=== PATIENT | male | born 1995 | race Caucasian/White ===

== ENCOUNTER 2016-11-20 05:39 | Emergency (ER) | payer OTHER ==
[~2016-11-20] VITALS: Ht 180.3 cm; Wt 104.3 kg
[2016-11-20] MEDS ORDERED: MORPHINE SULFATE 10 MG/ML VIAL. IM ONE (06:15)
[2016-11-20] MEDS ORDERED: DEXAMETHASONE SOD PHOS 20 MG/5 ML VIAL. IM ONE (06:30)
[2016-11-20] MEDS ORDERED: IV NORMAL SALINE 1000ML BAG 1,000 ML IV ONE (06:45)
[2016-11-20 06:59] LABS: CREATININE 1.1 mg/dL (0.7-1.3); GFR 84.5
[2016-11-20] MEDS ORDERED: MORPHINE SULFATE 4 MG/ML DISP.SYRIN. IV/SQ PRN (07:00)
[2016-11-20 07:05] LABS: BASO # 0.1 x10^3/uL (0.0-0.2); BASO % 1 % (0-3); EOS % 2 % (0-3); HEMATOCRIT 45.7 % (39.0-53.0); HEMOGLOBIN 15.3 g/dL (13.0-17.5); LYMPH # 1.8 x10^3/uL (1.0-4.8); LYMPH % 17 % (24-48); MEAN CORPUSCULAR HEMOGLOBIN 29 pg (25-35); MEAN CORPUSCULAR HGB CONC 33 g/dL (31-37); MEAN CORPUSCULAR VOLUME 87 fL (79-100); MONO % 11 % (0-9); NEUT % 70 % (31-73); PLATELET COUNT 278 x10^3/uL (140-400); RED BLOOD COUNT 5.27 x10^6/uL (4.30-5.70); RED CELL DISTRIBUTION WIDTH 12.5 % (11.5-14.5); WHITE BLOOD COUNT 10.8 x10^3/uL (4.0-11.0)
--- NOTE | 2016-11-20 07:22 | PHYS DOC ---
Past Medical History Past Medical History: Diabetes-Type I, Hypertension, Seizure Past Surgical History: Tonsillectomy Alcohol Use: None Drug Use: None Adult General Chief Complaint Chief Complaint: SORE THROAT HPI HPI Patient is a 21 year old male who presents with sore throat. The patient is s/ p tonsillectomy by Dr. Sohan Jacobs at [facility] on 11/17. States pain has been poorly controlled with lortab elixir since surgery. Today has increased sensation of throat swelling & pain continues, vomited once prior to arrival. Denies fevers/chills, bleeding, difficulty breathing, abdominal pain. Called integrity consultant surgeon & was instructed to seek care in the ER. he has diabetes. Review of Systems Review of Systems Constitutional: Denies fever or chills Eyes: Denies change in visual acuity HENT: Denies nasal congestion, reports sore throat Respiratory: Denies cough or shortness of breath Cardiovascular: Denies chest pain or edema GI: Reports nausea and vomiting. Denies abdominal pain Musculoskeletal: Denies back pain or joint pain Integument: Denies rash Neurologic: Denies headache Current Medications Current Medications Current Medications Medications (Trade) Dose Ordered Sig/Murali Start Time Stop Time Status Last Admin Dose Admin Dexamethasone Sodium Phosphate 10 mg 10 mg 1X ONCE 11/20/16 06:30 11/20/16 06:31 DC 11/20/16 06:41 10 MG Morphine Sulfate 4 mg PRN Q15MIN PRN 11/20/16 07:00 11/20/16 07:40 DC 11/20/16 06:59 4 MG Sodium Chloride (Iv Sodium Chloride 0.9% 1000ml Bag) 1,000 ml @ 1,000 mls/hr 1X ONCE 11/20/16 06:45 11/20/16 07:40 DC 11/20/16 06:45 1,000 MLS/HR Allergies Allergies Allergies Coded Allergies Type Severity Reaction Last Updated Verified No Known Drug Allergies 11/11/13 No Physical Exam Physical Exam Constitutional: Obese, no acute distress, non-toxic appearance. HENT: Normocephalic, atraumatic, bilateral external ears normal, oropharynx moist, nose normal. Posterior oropharynx bilateral white scar tissue with no evidence of bleeding or bulging of the palate, airway patent although uvula is edematous and somewhat obscuring view of posterior oropharynx. No definite evidence of tongue swelling, no lip or facial swelling. Eyes: conjunctiva normal, no discharge. Neck: supple, no stridor. Cardiovascular: RRR heart rate 100 at time of my exam, no murmurs, no edema. Lungs & Thorax: LCTAB, no wheezing, no respiratory distress. Abdomen: soft, nontender, nondistended. Skin: Warm, dry, no erythema, no rash. Back: No tenderness. Extremities: No calf tenderness or swelling. Neurologic: Alert and oriented X 3 Psychologic: Anxious Current Patient Data Vital Signs Vital Signs Date Time Temp Pulse Resp B/P Pulse Ox O2 Delivery O2 Flow Rate FiO2 11/20/16 07:30 94 19 158/90 99 11/20/16 06:59 Room Air 11/20/16 05:53 99.0 99.0 Lab Values Laboratory Tests Test 11/20/16 06:35 White Blood Count 10.8x10^3/uL (4.0-11.0) Red Blood Count 5.27x10^6/uL (4.30-5.70) Hemoglobin 15.3g/dL (13.0-17.5) Hematocrit 45.7% (39.0-53.0) Mean Corpuscular Volume 87fL (79-100) Mean Corpuscular Hemoglobin 29pg (25-35) Mean Corpuscular Hemoglobin Concent 33g/dL (31-37) Red Cell Distribution Width 12.5% (11.5-14.5) Platelet Count 278x10^3/uL (140-400) Neutrophils (%) (Auto) 70% (31-73) Lymphocytes (%) (Auto) 17% (24-48) L Monocytes (%) (Auto) 11% (0-9) H Eosinophils (%) (Auto) 2% (0-3) Basophils (%) (Auto) 1% (0-3) Neutrophils # (Auto) 7.5x10^3uL (1.8-7.7) Lymphocytes # (Auto) 1.8x10^3/uL (1.0-4.8) Monocytes # (Auto) 1.1x10^3/uL (0.0-1.1) Eosinophils # (Auto) 0.2x10^3/uL (0.0-0.7) Basophils # (Auto) 0.1x10^3/uL (0.0-0.2) Sodium Level 137mmol/L (136-145) Potassium Level 4.0mmol/L (3.5-5.1) Chloride Level 99mmol/L (98-107) Carbon Dioxide Level 30mmol/L (21-32) Anion Gap 8 (6-14) Blood Urea Nitrogen 8mg/dL (8-26) Creatinine 1.1mg/dL (0.7-1.3) Estimated GFR (Cockcroft-Gault) 84.5 Glucose Level 142mg/dL (70-99) H Calcium Level 10.0mg/dL (8.5-10.1) Laboratory Tests 11/20/16 06:35 Laboratory Tests 11/20/16 06:35 EKG EKG [] Radiology/Procedures Radiology/Procedures [] Course & Med Decision Making Course & Med Decision Making Pertinent Labs and Imaging studies reviewed. (See chart for details) Patient presents with pain after tonsillectomy. On exam uvula is swollen but airway is patent. Discussed with Dr. Rice integrity consultant for Dr. Jacobs, recommends decadron here & patient can call clinic for appointment on Tuesday. Patient agrees with plan but on my reassessment he was noted to have heart rate up to 130s while at rest. He appeared anxious but this raises concern for other process. Lungs are clear, no cough, no chest pain or leg swelling, no evidence of abscess clinically, only one episode of vomiting without abdominal pain. Gave IV fluids & pain medication, & obtained labs which show normal WBC. Patient remains afebrile. He felt better after fluids with HR in the 90s, & was comfortable with discharge home. When I entered the room to discuss discharge, he had experienced a transient episode of aching back pain with mild chest pain that completely resolved. This had followed morphine administration. Not present prior to arrival in the hospital & resolved at time of my reassessment. Patient still somewhat anxious & was lying in uncomfortable position on the gurney. With repositioning he felt better & requested discharge. We did discuss possibility of further evaluation including chest CTA for PE with his tachycardia, but he had no symptoms of DVT & no symptoms consistent with PE at time of presentation. He preferred to defer any further testing. He understands plan for follow up. I did advise him that there is not an ENT on staff at [place]; though our emergency department will never turn away a patient presenting for evaluation, it is in his best interest to seek care at the hospital where his ENT practices if needing further care. Recommend return for high fever, severe pain, severe chest pain or shortness of breath, difficulty breathing or swallowing, any bleeding, any otherwise worsening condition. Discharged home in stable condition. [] Dragon Disclaimer Dragon Disclaimer This electronic medical record was generated, in whole or in part, using a voice recognition dictation system. Departure Departure Impression: Primary Impression: Uvular swelling Additional Impression: Tachycardia Disposition: HOME, SELF-CARE Condition: STABLE Patient Instructions: Uvulitis Additional Instructions: You were seen in the emergency department today for pain after tonsillectomy. Your uvula is swollen but there is no sign of serious abnormality at the surgical site. Please rest, drink fluids to stay hydrated, continue using oral pain medication. You received steroids here which should help reduce swelling. Please follow up with Dr. Jacobs in clinic on Tuesday. If you have worsening pain, high fever > 100.4, difficulty breathing or swallowing, bleeding from your mouth, any otherwise worsening condition, you should be seen right away. As we discussed, there is not an ENT surgeon at [facility], though you will never be turned away in the ER. Scripts Ondansetron (Zofran Odt)4 Mg Tab.rapdis1 Tab SL Q8HRS PRN NAUSEA #10 TAB Prov:TRA KNOWLES MD 11/20/16 Oxycodone Hcl 5 Mg/5 Ml Solution5 Mg PO Q6HRS PRN PAIN #60 ML Ref 0 Prov:TRA KNOWLES MD 11/20/16 Problem Qualifiers TRA KNOWLES MD Nov 20, 2016 07:22
[2016-11-20 07:30] VITALS: BP 158/90
[2016-11-20] MEDS ORDERED: OXYC5SOL PO (07:38)
[2016-11-20] MEDS ORDERED: ONDA4TAB10 SL (07:38)
== END 2016-11-20 07:40 | disposition home or self-care (01) ==
LOC: ER 05:39
DX: K13.79 Other lesions of oral mucosa (principal); R00.0 Tachycardia, unspecified; F41.9 Anxiety disorder, unspecified; E10.9 Type 1 diabetes mellitus without complications; I10 Essential (primary) hypertension; Z90.89 Acquired absence of other organs
CPT/HCPCS: 36415; 80048; 85027; 96361; 96372; 96374; 99284; J1100; J2270; J7030

== ENCOUNTER 2017-03-08 18:40 | Emergency (ER) | payer OTHER ==
[~2017-03-08] VITALS: Ht 180.3 cm; Wt 108.9 kg
[~2017-03-08 18:40] MED LIST: ONDA4TAB10 SL; OXYC5SOL PO
--- NOTE | 2017-03-08 19:28 | PHYS DOC ---
Past Medical History Past Medical History: Diabetes-Type I, Hypertension, Seizure Past Surgical History: Tonsillectomy Alcohol Use: None Drug Use: None Adult General Chief Complaint Chief Complaint: NEAR SYNCOPE HPI HPI Patient is a 22 year old male who complains of forearm muscle cramps that are diffuse, feeling some chest tightness, feeling some weakness. Patient was working in the sun today for an extended period time when he started having the symptoms, patient had blood sugar check at the site his blood sugar was 50. Patient denies any focal weakness, numbness, there was no altered mental status. Patient feels improved in the ED, blood sugar in the ED is138 Review of Systems Review of Systems Constitutional: Denies fever or chills [] Respiratory: Denies cough or shortness of breath [] Cardiovascular: No additional information not addressed in HPI [] GI: Denies abdominal pain, nausea, vomiting, bloody stools or diarrhea [] : Denies dysuria or hematuria [] Musculoskeletal: muscle cramps Integument: Denies rash or skin lesions [] Neurologic: Denies headache, focal weakness or sensory changes [] Endocrine: Denies polyuria. Been drinking lots of water Current Medications Current Medications Current Medications Medications (Trade) Dose Ordered Sig/Murali Start Time Stop Time Status Last Admin Dose Admin Sodium Chloride 1,000 ml @ 1,000 mls/hr 1X ONCE 03/08/17 19:30 03/08/17 20:29 DC 03/08/17 19:26 1,000 MLS/HR Allergies Allergies Allergies Coded Allergies Type Severity Reaction Last Updated Verified No Known Drug Allergies 11/11/13 No Physical Exam Physical Exam Constitutional: Well developed, well nourished, no acute distress, non-toxic appearance. [] HENT: Normocephalic, atraumatic, DMM Eyes: EOMI, conjunctiva normal, no discharge. [] Neck: Normal range of motion, no tenderness, supple, no stridor. [] Cardiovascular: Tachycardia with equal pulses and normal perfusion Lungs & Thorax: Bilateral breath sounds clear to auscultation , no tachypnea Abdomen: Bowel sounds normal, soft, no tenderness, no masses, no pulsatile masses. [] Skin: Warm, dry, no erythema, no rash. [] Extremities: No tenderness, no cyanosis, no clubbing, ROM intact, no edema. No signs of DVT Neurologic: Alert and oriented X 3, normal motor function, normal sensory function, no focal deficits noted. [] Psychologic: Affect normal, judgement normal, mood normal. [] Current Patient Data Vital Signs Vital Signs Date Time Temp Pulse Resp B/P (MAP) Pulse Ox O2 Delivery O2 Flow Rate FiO2 03/08/17 20:35 98 134/71 (92) 98 Room Air 03/08/17 19:01 98.6 22 98.6 Lab Values Laboratory Tests Test 03/08/17 19:18 03/08/17 19:24 03/08/17 20:14 03/08/17 20:19 Glucose (Fingerstick) 138 mg/dL (70-99) H POC Hemoglobin 18.4 g/dL (14-18) H 17.7 g/dL (14-18) POC Hematocrit 54 % (37-52) H 52 % (37-52) POC Sodium 131 mmol/L (135-145) L 135 mmol/L (135-145) POC Potassium 7.0 mmol/L (3.5-5.0) H 4.3 mmol/L (3.5-5.0) POC Chloride 100 mmol/L (98-110) 99 mmol/L (98-110) POC Total CO2 23 mmol/L (23-32) 24 mmol/L (23-32) Anion Gap 16 mmol/L (6-14) H 17 mmol/L (6-14) H 13 (6-14) POC Blood Urea Nitrogen 43 mg/dL (8-26) H 30 mg/dL (8-26) H POC Creatinine 3.0 mg/dL (0.5-1.4) H 2.7 mg/dL (0.5-1.4) H Glucose Level 127 mg/dL (70-99) H 114 mg/dL (70-99) H 119 mg/dL (70-99) H POC Ionized Calcium (Jeremiah) 1.15 mmol/L (1.13-1.32) 1.21 mmol/L (1.13-1.32) Sodium Level 137 mmol/L (136-145) Potassium Level 4.4 mmol/L (3.5-5.1) Chloride Level 98 mmol/L (98-107) Carbon Dioxide Level 26 mmol/L (21-32) Blood Urea Nitrogen 30 mg/dL (8-26) H Creatinine 2.8 mg/dL (0.7-1.3) H Estimated GFR (Cockcroft-Gault) 28.5 Calcium Level 9.9 mg/dL (8.5-10.1) Laboratory Tests 03/08/17 19:24 03/08/17 20:14 03/08/17 20:19 EKG EKG Sinus tachycardia, 117, no STEMI, EP interpretation at 1903 [] Radiology/Procedures Radiology/Procedures [] Course & Med Decision Making Course & Med Decision Making Pertinent Labs and Imaging studies reviewed. (See chart for details) Patient feels improved, heart rate when I enter the room was 90. Patient in no distress. No vomiting in the ED. I discussed the lab results with the patient and the family, I pointed out that there are signs of acute renal injury likely due to dehydration so recommended rehydration at home and recheck of renal labs in 2 days at the PCPs office. I pointed out this is likely an acute issue but it there is a possibility it may be acute on chronic due to the patient's diabetes and we need to make sure there is no worsening. Patient and family voiced understanding and admitted to follow-up as directed [] Dragon Disclaimer Dragon Disclaimer This electronic medical record was generated, in whole or in part, using a voice recognition dictation system. Departure Departure Impression: Primary Impression: Heat exhaustion Additional Impressions: Dehydration, moderate Hypoglycemia Renal insufficiency Disposition: 01 HOME, SELF-CARE Condition: IMPROVED Referrals: MAKAYLA ZAMBRANO-C (PCP) please continue oral hydration at home, do not work in the sun tomorrow and stay home. Please make sure to have your renal labs recheck in 2 days at your pcp's office. Problem Qualifiers Tiera PEREYRA MD Mar 08, 2017 19:28
[2017-03-08] MEDS ORDERED: IV NORMAL SALINE 1000ML BAG 1,000 ML IV ONE (19:30)
[2017-03-08 20:44] LABS: CALCIUM 9.9 mg/dL (8.5-10.1); CREATININE 2.8 mg/dL (0.7-1.3); GFR 28.5; POTASSIUM 4.4 mmol/L (3.5-5.1)
[2017-03-08 20:44] LABS: POTASSIUM ISTAT 4.3 mmol/L (3.5-5.0)
[2017-03-08 21:15] VITALS: BP 132/75
--- NOTE | 2017-03-09 06:38 | EKG ---
[facility] [address] [place] [address] Test Date: 2017-03-08 Test Time: 19:03:01 Pat Name: VAL SETHI Department: Room: Gender: M [employer]: : 1995 Requested By: Tiera PEREYRA Order Number: [id number] Reading MD: Dane Otoole Measurements Intervals Atkins Rate: 117 P: 45 NE: 140 QRS: 69 QRSD: 76 T: 29 QT: 292 QTc: 411 Interpretive Statements SINUS TACHYCARDIA Electronically Signed On 03-10-2017 8:53:01 CDT by Dane Otoole
== END 2017-03-08 21:20 | disposition home or self-care (01) ==
LOC: ER 18:40
DX: T67.5XXA Heat exhaustion, unspecified, initial encounter (principal); E86.0 Dehydration; E10.649 Type 1 diabetes mellitus with hypoglycemia without coma; N28.9 Disorder of kidney and ureter, unspecified; Z90.89 Acquired absence of other organs; I10 Essential (primary) hypertension; X58.XXXA Exposure to other specified factors, initial encounter; Y93.9 Activity, unspecified; Y99.8 Other external cause status; Y92.89 Other specified places as the place of occurrence of the external cause
CPT/HCPCS: 36415; 80047; 80048; 82962; 93005; 96360; 96361; 99285; J7030

== ENCOUNTER 2017-06-05 09:45 | Emergency (ER) | payer OTHER ==
[~2017-06-05] VITALS: Ht 180.3 cm; Wt 104.3 kg
[2017-06-05 09:55] VITALS: BP 143/70
[2017-06-05] MEDS ORDERED: DIPHTH,PERTUSS(ACELL),TET TOX 0.5 ML DISP.SYRIN. VAX IM ONE (10:00)
[2017-06-05] MEDS ORDERED: SULF1TAB24 PO (10:01)
--- NOTE | 2017-06-05 10:02 | PHYS DOC ---
Past Medical History Past Medical History: Diabetes-Type I, Hypertension, Seizure Additional Past Medical Histor: ADD Past Surgical History: Tonsillectomy Alcohol Use: Rarely Drug Use: None Adult General Chief Complaint Chief Complaint: INSECT BITE HPI HPI Patient is a 22 year old male with history of hypertension, diabetes type 1, seizures, who presents with what he believes a spider bite above his right knee that he noted yesterday. Patient denies any fever. Patient states he also has multiple insect bites to bilateral lower extremities for the last 1 week.He states his blood sugars run <180s. Review of Systems Review of Systems Constitutional: Denies fever or chills [] Eyes: Denies change in visual acuity, redness, or eye pain [] HENT: Denies nasal congestion or sore throat [] Respiratory: Denies cough or shortness of breath [] Cardiovascular: No additional information not addressed in HPI [] GI: Denies abdominal pain, nausea, vomiting, bloody stools or diarrhea [] : Denies dysuria or hematuria [] Musculoskeletal: Denies back pain or joint pain [] Integument:Redness above the right knee, and insect bites bilateral lower extremities. Neurologic: Denies headache, focal weakness or sensory changes [] Endocrine: Denies polyuria or polydipsia [] Allergies Allergies Allergies Coded Allergies Type Severity Reaction Last Updated Verified No Known Drug Allergies 11/11/13 No Physical Exam Physical Exam Constitutional: Well developed, well nourished, no acute distress, non-toxic appearance. [] HENT: Normocephalic, atraumatic, bilateral external ears normal, oropharynx moist, no oral exudates, nose normal. [] Eyes: PERRLA, EOMI, conjunctiva normal, no discharge. [] Neck: Normal range of motion, no tenderness, supple, no stridor. [] Cardiovascular:Heart rate regular rhythm, no murmur [] Lungs & Thorax: Bilateral breath sounds clear to auscultation [] Abdomen: Bowel sounds normal, soft, no tenderness, no masses, no pulsatile masses. [] Skin: Warm, dry,right above the knee with a area of cellulitis approximately 2 x 2 centimeters. There is no drainage to the area, the area is warm tender to touch no fluctuance. There is multiple insect bite rash on bilateral lower and upper extremities with no infection. Back: No tenderness, no CVA tenderness. [] Extremities: No tenderness, no cyanosis, no clubbing, ROM intact, no edema. [] Neurologic: Alert and oriented X 3, normal motor function, normal sensory function, no focal deficits noted. [] Psychologic: Affect normal, judgement normal, mood normal. [] EKG EKG [] Radiology/Procedures Radiology/Procedures [] Course & Med Decision Making Course & Med Decision Making Pertinent Labs and Imaging studies reviewed. (See chart for details) Patient has cellulitis above the right knee. Discharge and Bactrim. He also has multiple insect bites bilateral upper and lower extremities. Discharged with Zyrtec and recommended Neosporin cream. Follow-up with primary care doctor in one week. Tetanus was updated in the ED. Dragon Disclaimer [place] Disclaimer This electronic medical record was generated, in whole or in part, using a voice recognition dictation system. Departure Departure Impression: Primary Impression: Cellulitis of right lower extremity Additional Impression: Insect bites Disposition: 01 HOME, SELF-CARE Condition: STABLE Referrals: MAKAYLA ZAMBRANO (PCP) Follow-up with your doctor in 1-2 weeks Patient Instructions: Cellulitis, Insect Bite, [id number] Additional Instructions: You were seen with cellulitis of the right lower extremity. Take the prescribed antibiotics until completed. You have multiple insect bites bilateral upper extremities. Keep the areas clean and dry. Take Zyrtec during the day and Benadryl during the night for this. Follow-up with your doctor in the course of next week and this week. Come back to the emergency room if symptoms worsen. Scripts Sulfamethoxazole/Trimethoprim (BACTRIM DS TABLET) 1 Each Tablet 1 TAB PO BID, #20 TAB Prov: DU ORTIZ APRN 06/05/17 Problem Qualifiers Additional Impression: Insect bites Encounter type: initial encounter Qualified Codes: W57.XXXA - Bitten or stung by nonvenomous insect and other nonvenomous arthropods, initial encounter DU ORTIZ APRN Jun 05, 2017 10:02
== END 2017-06-05 10:28 | disposition home or self-care (01) ==
LOC: ER 09:45
DX: L03.116 Cellulitis of left lower limb (principal); S80.862A Insect bite (nonvenomous), left lower leg, initial encounter; S80.861A Insect bite (nonvenomous), right lower leg, initial encounter; E10.9 Type 1 diabetes mellitus without complications; I10 Essential (primary) hypertension; W57.XXXA Bitten or stung by nonvenomous insect and other nonvenomous arthropods, initial encounter; Y93.89 Activity, other specified; Y99.8 Other external cause status; Y92.89 Other specified places as the place of occurrence of the external cause
CPT/HCPCS: 90471; 90715; 99283-25

== ENCOUNTER 2017-09-23 06:47 | Emergency (ER) | payer OTHER ==
[2017-09-23 07:31] LABS: ADD MAN DIFF? NO
[2017-09-23 07:38] LABS: BASO % 1 % (0-3); EOS # 0.1 x10^3/uL (0.0-0.7); EOS % 1 % (0-3); HEMATOCRIT 43.3 % (39.0-53.0); HEMOGLOBIN 14.5 g/dL (13.0-17.5); LYMPH # 1.4 x10^3/uL (1.0-4.8); LYMPH % 14 % (24-48); MEAN CORPUSCULAR HEMOGLOBIN 29 pg (25-35); MEAN CORPUSCULAR HGB CONC 34 g/dL (31-37); MEAN CORPUSCULAR VOLUME 87 fL (79-100); MONO # 0.6 x10^3/uL (0.0-1.1); MONO % 6 % (0-9); NEUT % 79 % (31-73); PLATELET COUNT 266 x10^3/uL (140-400); RED BLOOD COUNT 4.96 x10^6/uL (4.30-5.70); RED CELL DISTRIBUTION WIDTH 12.4 % (11.5-14.5)
[2017-09-23 07:49] LABS: ANION GAP 10 (6-14); BLOOD UREA NITROGEN 19 mg/dL (8-26); BUN/CREATININE RATIO 19 (6-20); CARBON DIOXIDE 28 mmol/L (21-32); CHLORIDE 102 mmol/L (98-107); GFR 93.4; GLUCOSE 98 mg/dL (70-99); POTASSIUM 3.8 mmol/L (3.5-5.1); SODIUM 140 mmol/L (136-145)
[2017-09-23 07:50] LABS: BARBITURATES NEG (NEG); BENZODIAZEPINES NEG (NEG); CANNABINOIDS NEG (NEG); COCAINE NEG (NEG); METHADONE NEG (NEG); OPIATES NEG (NEG); PHENCYCLIDINE NEG (NEG)
[2017-09-23 07:55] LABS: ALBUMIN 3.7 g/dL (3.4-5.0); ALBUMIN/GLOBULIN RATIO 1.2 (1.0-1.7); ALK PHOS 68 U/L (46-116); ALT (SGPT) 30 U/L (16-63); AST (SGOT) 22 U/L (15-37); TOTAL BILIRUBIN 0.2 mg/dL (0.2-1.0); TOTAL PROTEIN 6.8 g/dL (6.4-8.2)
[2017-09-23 08:03] LABS: AMPHETAMINE/METHAMPHETAMINE NEG (NEG); ETHANOL, URINE NEG (NEG)
[2017-09-23 08:17] LABS: BILIRUBIN,URINE NEGATIVE (NEG); CLARITY,URINE CLEAR; COLOR,URINE YELLOW; GLUCOSE,URINE NEGATIVE (NEG); NITRITE,URINE NEGATIVE (NEG); PH,URINE 5.5; PROTEIN,URINE NEGATIVE (NEG-TRACE); UROBILINOGEN,URINE 0.2 mg/dL (0.2 mg/dL)
[2017-09-23] MEDS: ACETAMINOPHEN 500 MG TABLET PO ×2 (08:20)
[2017-09-23 08:28] LABS: BACTERIA,URINE 0 /HPF (0-FEW); RBC,URINE 0 /HPF (0-2); WBC,URINE 0 /HPF (0-4)
== END 2017-09-23 08:54 | disposition home or self-care (01) ==
LOC: ER 06:47
DX: R56.9 Unspecified convulsions (principal); E10.9 Type 1 diabetes mellitus without complications
CPT/HCPCS: 36415; 70450; 80053; 80307; 81001; 85025; 99285-25